=== PATIENT | male | born 1975 | race Caucasian/White ===

== ENCOUNTER 2017-05-17 14:22 | Emergency (ER) | payer MEDICAID, OTHER ==
[~2017-05-17] VITALS: Ht 165.1 cm; Wt 86.0 kg
[2017-05-17 14:33] VITALS: Ht 165.1 cm; Wt 86.0 kg
[2017-05-17] MEDS ORDERED: LIDOCAINE 1% (MDV) 10 ML INJ INJ STA (15:32)
--- NOTE | 2017-05-17 15:41 | ERD ---
ER Documentation Chief Complaint Chief Complaint LEFT WRIST LAC FROM A DRY WALL KNIFE 2" LONG UNKNOWN DEPTH HPI 41-year-old male comes to emergency department with a left wrist laceration from a knife while he was working just prior to arrival. He sustained a laceration while cutting something at work, and he does not recall his last tetanus shot was. He describes sharp pain, but no foreign body entrance, no difficulty moving, no paresthesias, no weakness. Patient is right-hand dominant. ROS All systems reviewed and are negative except as per history of present illness. PMhx/Soc Medical and Surgical Hx: pt denies Medical Hx, pt denies Surgical Hx Physical Exam Vitals Vital Signs Date Time Temp Pulse Resp B/P Pulse Ox O2 Delivery O2 Flow Rate FiO2 05/17/17 14:33 98.1 68 16 146/75 98 Physical Exam General: Well-developed, well-nourished. The patient appears in no acute distress. HEENT: Head is normocephalic, atraumatic. No scleral icterus. Neck: Supple. Nontender. Lungs: Clear to auscultation. Normal air movement. Heart: Regular rate and rhythm. S1 and S2 are normal. No murmurs, gallops, or rubs. Abdomen: Nondistended. Extremities: 3 cm linear laceration at the volar wrist no active bleeding, no tendon visible, no foreign body seen. Radial, ulnar and median nerve intact. Patient has full range of motion with wrist flexion extension, patient is able to make a fist. Neurologic: Alert and oriented 3. No focal deficits. Normal speech and gait. Skin: Normal turgor. No rash or lesions. Results 24 hrs Current Medications Medications (Trade) Dose Ordered Sig/Darrell Route PRN Reason Start Time Stop Time Status Last Admin Dose Admin Diphtheria/ Tetanus/Acell Pertussis (Adacel) 0.5 ml ONCE ONCE IM 05/17/17 16:00 05/17/17 16:01 DC 05/17/17 16:01 Lidocaine HCl (Lidocaine 1% (Mdv) 10 ml) 10 ml ONCE STAT INJ 05/17/17 15:32 05/17/17 15:33 DC Procedures/MDM Laceration Repair by me: Patient was verbally consented Anesthesia: 1% lidocaine locally Location: Left wrist Tendon/Joint/Nerves: No injury Foreign body: None detected after copious irrigation and exploration Technique: Simple Interrupted Sutures x 4 Complexity: No subcutaneous sutures/mucosal repair/ edge excision Post Closure Length: 3 cm Patient's bleeding was easily controlled in the department and there is no indication of anemia. No evidence of compartment syndrome, neurologic injury, vascular injury, open joint, tendon laceration, or foreign body. Patient is appropriate for outpatient follow up. 48 hour wound check. Scar minimization instructions given. Departure Diagnosis: Primary Impression: Laceration Condition: Good NADIRA MARTIN PA-C May 17, 2017 15:41
[2017-05-17] MEDS ORDERED: DIPHTH/TET/ACEL PERTUSS (ADULT) 0.5 ML VIAL IM ONE (16:00)
== END 2017-05-17 16:24 | disposition home or self-care (01) ==
LOC: FTE 14:22
DX: S61.512A Laceration without foreign body of left wrist, initial encounter (principal); W26.0XXA Contact with knife, initial encounter; Y92.9 Unspecified place or not applicable
CPT/HCPCS: 12002; 90471; 90715; Z7502; Z7610

== ENCOUNTER 2017-05-20 14:43 | Emergency (ER) | payer MEDICAID ==
[~2017-05-20] VITALS: Ht 165.1 cm; Wt 84.0 kg
[2017-05-20 15:03] VITALS: Ht 165.1 cm; Wt 84.0 kg
--- NOTE | 2017-05-20 15:19 | ERD ---
ER Documentation Chief Complaint Chief Complaint Patient here for a wound check HPI This is a 41-year-old male presenting to the emergency department for a wound check of a repaired laceration that was done 2 days prior to being seen on his right wrist. Denies any fevers or complications ROS All systems reviewed and are negative except as per history of present illness. Allergies Allergies: Coded Allergies: No Known Allergy (Unverified , 05/20/17) Physical Exam Vitals Vital Signs Date Time Temp Pulse Resp B/P Pulse Ox O2 Delivery O2 Flow Rate FiO2 05/20/17 15:03 97.6 57 20 126/83 99 Physical Exam Const: [] Head: Atraumatic Eyes: Normal Conjunctiva ENT: Normal External Ears, Nose and Mouth. Neck: Full range of motion..~ No meningismus. Resp: Clear to auscultation bilaterally Cardio: Regular rate and rhythm, no murmurs Abd: Soft, non tender, non distended. Normal bowel sounds Skin: No petechiae or rashes Back: No midline or flank tenderness Ext: Sutures intact on his right wrist no evidence of dehiscence or erythema induration Neur: Awake and alert Psych: Normal Mood and Affect Procedures/MDM 41-year-old male presenting to the emergency department for a wound check of a repaired laceration is in 2 days prior to being seen, there is no evidence of cellulitis or dehiscence. Patient stable to be discharged home Departure Diagnosis: Primary Impression: Encounter for wound re-check Condition: Stable Patient Instructions: Wound Check, Lac F/U (No Infection) Referrals: NO PRIMARY,CARE PHYSICIAN (PCP) YOLANDA OATES PA-C May 20, 2017 15:19
== END 2017-05-20 15:41 | disposition home or self-care (01) ==
LOC: FTE 14:43
DX: Z48.01 Encounter for change or removal of surgical wound dressing (principal)
CPT/HCPCS: 99281

== ENCOUNTER 2017-06-07 13:31 | Emergency (ER) | payer MEDICAID ==
[~2017-06-07] VITALS: Wt 84.6 kg
--- NOTE | 2017-06-07 15:55 | ERD ---
ER Documentation Chief Complaint Chief Complaint SUTURE REMOVAL ON LAC REPAIR, LEFT WRIST HPI This is a 41-year-old male who presents the emergency department today for suture removal of sutures he had placed over one month ago. Denies any fevers or chills. ROS All systems reviewed and are negative except as per history of present illness. Allergies Allergies: Coded Allergies: No Known Allergy (Unverified , 05/20/17) PMhx/Soc Hx Alcohol Use: No Hx Substance Use: No Hx Tobacco Use: No Physical Exam Vitals Vital Signs Date Time Temp Pulse Resp B/P Pulse Ox O2 Delivery O2 Flow Rate FiO2 06/07/17 13:34 97.8 68 18 122/79 98 Physical Exam Const: NAD Head: Atraumatic Eyes: Normal Conjunctiva ENT: Normal External Ears, Nose and Mouth. Neck: Full range of motion..~ No meningismus. Resp: Clear to auscultation bilaterally Cardio: Regular rate and rhythm, no murmurs Skin: Evidence of 5 sutures placed left wrist. No purulent drainage. No Erythema or warmth Ext: Wrist with evidence of 5 sutures placed. No purulent drainage erythema or warmth. Full active range of motion of thumb and wrist. Pulses 2+. Distal neurovascularly intact. Neur: Awake and alert Psych: Normal Mood and Affect Procedures/MDM This 41-year-old male who presents the emergency department today for suture removal of sutures he had placed on his left wrist. Upon review of patient's medical records patient had sutures placed here on May 17, 2017. He returned 3 days afterwards for follow-up. His indicated that he was told to come back in 10 days from that time. It has been a significant amount of time since patient had some sutures placed and there does appear to be a little bit of wound dehiscence however sutures are starting to unravel and therefore I did remove the sutures. Wound may continue to heal by secondary intention. There is no erythema or warmth. Low suspicion for sepsis, cellulitis or deep space tracking infection. 5 sutures were removed without complication. At this time the patient is stable for discharge and outpatient management. Patient should follow up with their PCP in the next 1-2 days. They may return to the emergency department sooner for any persistent or worsening of symptoms. Patient understood and agreed with the plan. Departure Diagnosis: Primary Impression: Encounter for removal of sutures Condition: Fair Patient Instructions: Suture Removal, No Complication [facility]: [facility] Usted se cardenas hecho un examen mdico de control que le indica que no est en gabriela condicin que requiera tratamiento urgente en el Departamento de Emergencia. Un estudio ms profundo y el tratamiento de dela cruz condicin pueden esperar sin ningn riesgo hasta que usted sea atendida/o en el consultorio de dela cruz mdico o gabriela cl adelia. Es responsabilidad suya arreglar gabriela jahaira para el seguimiento del brianne. MANEJO DE CONDICIONES NO URGENTES EN EL FUTURO 1) Si usted tiene un mdico de atencin primaria: Usted debera llamar a dela cruz mdico de atencin primaria antes de venir al departamento de emergencia. Despus de las horas de consultorio, dela cruz doctor o dela cruz asociado/a est disponible por telfono. El mdico o enfermero de shannan en el servicio telefnico puede asesorarle por jessica medio para atender el problema, o brianne contrario se puede programar gabriela jahaira. 2) Si usted no tiene un mdico de atencin primaria: Llame al mdico o clnica de referencia que aparece abajo luz las horas de consultorio para hacer gabriela jahaira para que le vean. CLINICAS: [facility] [id number] [facility] [phone] [facility] [phone] [id number] [facility]. [facility] [phone] [address] [facility] [place] [id number] [phone] [facility] [phone] [address] Additional Instructions: Llame al doctor MAANA y mark gabriela JAHAIRA PARA DENTRO DE 1-2 SUGGS.Dgale a la secretaria que nosotros le instruimos hacer esta jahaira.Avise o llame si dela cruz condicin se empeora antes de la jahaira. Regresa aqui si peor o no mejor. KALYN FERNÁNDEZ PA-C Jun 07, 2017 15:55
== END 2017-06-07 16:05 | disposition home or self-care (01) ==
LOC: FTE 13:31
DX: Z48.02 Encounter for removal of sutures (principal)
CPT/HCPCS: 99281